=== PATIENT | male | born 1980 | race Two or more races ===

== ENCOUNTER 2018-09-19 01:20 | Emergency (ER) | payer BC ==
[~2018-09-19] VITALS: Ht 165.1 cm; Wt 90.7 kg
--- NOTE | 2018-09-19 01:26 | PHYS DOC ---
Past Medical History Past Medical History: No Pertinent History Past Surgical History: Other Past Surgical History Abdominal surgery following accident. Unable to obtain more details d/t language barrier. Smoking: Cigarettes Alcohol Use: None Drug Use: None Adult General Chief Complaint Chief Complaint: ABDOMINAL PAIN HPI HPI Patient is 38 yo male who presents with severe L sided flank and abdominal pain that radiates to his groin. Patient reports yesterday he noticed urinary urgency and decreased volume of urine output. Around 1800 yesterday he notes the pain became significantly worse and he began to have worsening pain with urination.. He originally thought the pain was d/t gas and took GasX, however that did not alleviate symptoms. He has never had a kidney stone or similar symptoms. He denies recent trauma to back or abdomen. He reports the pain is so significant he cannot sit still. He denies nausea, vomiting, diarrhea, or penile discharge. He reports his last bowel movement was early yesterday and he has passed gas since. Of note, patient explains that he has a midline scar on his abdomen from trauma several years ago. Patient denies medication allergies, etoh use, tobacco use, or drug use. Review of Systems Review of Systems Constitutional: Denies fever or chills [] Respiratory: Denies cough or shortness of breath [] Cardiovascular: Denies chest pain or palpitations GI: Denies abdominal pain, nausea, vomiting, or diarrhea [] : Admits dysuria, urinary retention, urinary urgency. Denies penile discharge or gross blood in urine. Musculoskeletal: Admits back pain that radiates to groin. Integument: Denies rash or skin lesions [] Neurologic: Denies headache, focal weakness or sensory changes [] [ Complete systems were reviewed and found to be within normal limits, except as documented in this note. Current Medications Current Medications Current Medications Medications (Trade) Dose Ordered Sig/Juventino Start Time Stop Time Status Last Admin Dose Admin Fentanyl Citrate (Fentanyl 2ml Vial) 50 mcg 1X ONCE 09/19/18 02:00 09/19/18 02:01 DC 09/19/18 01:56 50 MCG Ketorolac Tromethamine (Toradol 15mg Vial) 15 mg 1X ONCE 09/19/18 01:45 09/19/18 01:46 DC 09/19/18 01:49 15 MG Metoclopramide HCl (Reglan Vial) 10 mg 1X ONCE 09/19/18 01:45 09/19/18 01:46 DC 09/19/18 01:49 10 MG Sodium Chloride 1,000 ml @ 1,000 mls/hr 1X ONCE 09/19/18 01:45 09/19/18 02:44 DC 09/19/18 01:48 1,000 MLS/HR Tamsulosin HCl (Flomax) 0.4 mg 1X ONCE 09/19/18 03:00 09/19/18 03:01 DC 09/19/18 03:26 0.4 MG Allergies Allergies Allergies Coded Allergies Type Severity Reaction Last Updated Verified No Known Drug Allergies 09/19/18 No Physical Exam Physical Exam Constitutional: Well developed, well nourished, uncomfortable in bed and sitting up, non-toxic appearance. [] HENT: Normocephalic, atraumatic, Neck: Normal range of motion Cardiovascular:Heart rate regular rhythm, no murmur [] Lungs & Thorax: Bilateral breath sounds clear to auscultation [] Abdomen: Soft, mildly tender to palpation, particularly LLQ, midline scar present from sternum to below umbilicus. Skin: Warm, dry, no erythema, no rash. [] Back: L side mildly tender to palpation. No CVA tenderness Extremities: No tenderness, ROM intact, no edema. [] Neurologic: Alert and oriented X 3, normal motor function, normal sensory function, no focal deficits noted. [] Current Patient Data Vital Signs Vital Signs Date Time Temp Pulse Resp B/P (MAP) Pulse Ox O2 Delivery O2 Flow Rate FiO2 09/19/18 02:56 84 148/95 (112) 98 09/19/18 01:56 22 Room Air 09/19/18 01:25 98.0 98.0 Lab Values Laboratory Tests Test 09/19/18 01:30 09/19/18 01:35 Urine Collection Type Unknown Urine Color Yellow Urine Clarity Cloudy Urine pH 7.5 Urine Specific Occidental 1.025 Urine Protein >=300 mg/dL (NEG-TRACE) Urine Glucose (UA) 100 mg/dL (NEG) Urine Ketones (Stick) Trace mg/dL (NEG) Urine Blood Moderate (NEG) Urine Nitrite Negative (NEG) Urine Bilirubin Negative (NEG) Urine Urobilinogen Dipstick 1.0 mg/dL (0.2 mg/dL) Urine Leukocyte Esterase Negative (NEG) Urine RBC 20-40 /HPF (0-2) Urine WBC Occ /HPF (0-4) Urine Squamous Epithelial Cells Occ /LPF Urine Amorphous Sediment Present /HPF Urine Bacteria Few /HPF (0-FEW) Urine Mucus Mod /LPF White Blood Count 9.5 x10^3/uL (4.0-11.0) Red Blood Count 5.38 x10^6/uL (4.30-5.70) Hemoglobin 15.8 g/dL (13.0-17.5) Hematocrit 46.6 % (39.0-53.0) Mean Corpuscular Volume 87 fL (79-100) Mean Corpuscular Hemoglobin 29 pg (25-35) Mean Corpuscular Hemoglobin Concent 34 g/dL (31-37) Red Cell Distribution Width 12.7 % (11.5-14.5) Platelet Count 230 x10^3/uL (140-400) Neutrophils (%) (Auto) 82 % (31-73) H Lymphocytes (%) (Auto) 13 % (24-48) L Monocytes (%) (Auto) 4 % (0-9) Eosinophils (%) (Auto) 1 % (0-3) Basophils (%) (Auto) 0 % (0-3) Neutrophils # (Auto) 7.8 x10^3uL (1.8-7.7) H Lymphocytes # (Auto) 1.2 x10^3/uL (1.0-4.8) Monocytes # (Auto) 0.4 x10^3/uL (0.0-1.1) Eosinophils # (Auto) 0.1 x10^3/uL (0.0-0.7) Basophils # (Auto) 0.0 x10^3/uL (0.0-0.2) Sodium Level 135 mmol/L (136-145) L Potassium Level 3.7 mmol/L (3.5-5.1) Chloride Level 101 mmol/L (98-107) Carbon Dioxide Level 26 mmol/L (21-32) Anion Gap 8 (6-14) Blood Urea Nitrogen 17 mg/dL (8-26) Creatinine 1.6 mg/dL (0.7-1.3) H Estimated GFR (Cockcroft-Gault) 49.2 BUN/Creatinine Ratio 11 (6-20) Glucose Level 160 mg/dL (70-99) H Calcium Level 9.2 mg/dL (8.5-10.1) Magnesium Level 2.1 mg/dL (1.8-2.4) Total Bilirubin 0.5 mg/dL (0.2-1.0) Aspartate Amino Transferase (AST) 34 U/L (15-37) Alanine Aminotransferase (ALT) 46 U/L (16-63) Alkaline Phosphatase 54 U/L (46-116) Total Protein 8.0 g/dL (6.4-8.2) Albumin 4.1 g/dL (3.4-5.0) Albumin/Globulin Ratio 1.1 (1.0-1.7) Lipase 165 U/L (73-393) Laboratory Tests 09/19/18 01:35 Laboratory Tests 09/19/18 01:35 EKG EKG [] Radiology/Procedures Radiology/Procedures [PROCEDURE: CT ABDOMEN PELVIS WO CONTRAST CT abdomen and pelvis without contrast PQRS statement: CT scans at this facility use dose reduction including either automated exposure control, iterative reconstructions, and /or weight based radiation dosing via mA and kV modification when appropriate to reduce radiation dose to as low as reasonably achievable. HISTORY: Left flank pain, ureteral calculi. TECHNIQUE: Noncontrast CT imaging of the abdomen and pelvis was acquired. Abdomen findings: Right middle lobe oblong 7 mm solid soft tissue nodule. Small 2 mm right renal upper pole calculus. There is mild left renal hydronephrosis and renal edema and perinephric edema as well as ureteral dilation associated with a ureterovesical junction 2 mm calculus. Pancreas, adrenals, spleen, liver and gallbladder are unremarkable. Appendix is negative. No obstruction or inflammation GI tract. No abdominal fluid. Chronic shrapnel left anterior chest wall noted. Pelvis findings: 2 mm left ureterovesical calculus. Prostate, rectum and bones unremarkable. Old shrapnel right buttock. IMPRESSION: 1. Mild left renal hydronephrosis and renal edema associated with a 2 mm obstructing ureterovesical junction calculus. 2. Small nonobstructing right renal calculus. 3. Appendix is negative. 4. 7 mm right middle lobe solid pulmonary nodule. Per Fleischner guidelines attention on follow-up CT imaging in 6-12 months would be advised. Electronically signed by: Francisco J Scales MD (09/19/2018 2:30 AM) [facility] [id number]] Course & Med Decision Making Course & Med Decision Making Patient is 38 yo [place] male who presents with urinary urgency, burning, and L sided flank and abdominal pain that radiates to groin beginning at 1800 yesterday. He reports he has never had problems with kidneys or prior kidney stones. On physical exam he is hypertensive and uncomfortable in bed. There are no lesions on his back or left side of his abdomen. Patient is mildly tender to palpation in abdomen. Remainder of physical examination unremarkable. CT abdomen pelvis revealed 2mm stone at L side ureterovesicular junction. Additionally CT revealed nonspecific R sided 7mm lung nodule. Patient treated with fentanyl, ketorolac, flomax, and fluids. Labs revealed elevated Cr and blood in UA. Through the interpreter and translator phone we explained the lab results and that the imaging showed a L sided kidney stone. We explained the plan was to discharge the patient home with hydrocodone for pain, flomax to help relax the ureter, and zofran for nausea.. We instructed the patient to drink plenty of fluids to help pass the stone, and that he may be minimally uncomfortable until the stone passes. Also, we explained that the CT revealed an incidental finding of a R sided lung nodule. We discussed that it is important for the patient to establish care with a primary care provider to have a repeat blood test for creatinine and to have a repeat CT for the lung nodule in 6-[address] of CT report provided to patient to give to his PCP. Patient stable for discharge with outpatient follow-up with PCP/urologist. Urology referral given. Discussed findings and plan with patient and family, who acknowledge understanding and agreement. Dragon Disclaimer Dragon Disclaimer This electronic medical record was generated, in whole or in part, using a voice recognition dictation system. Departure Departure Impression: Primary Impression: Kidney stone Additional Impressions: Incidental pulmonary nodule, > 3mm and < 8mm Renal insufficiency Disposition: 01 HOME, SELF-CARE Condition: STABLE Referrals: YONNY TRACY MD Patient Instructions: Diet for Kidney Stones, Incidental Abnormal Radiological Finding, Kidney Stones, [id number], Pulmonary Nodule, [id number] Additional Instructions: Your Kidney function was found to be slightly impaired. Your creatnine was 1.6. Please follow with your family physician for further evaluation and recheck of your value. Scripts Tamsulosin Hcl (FLOMAX) 0.4 Mg Cap.er.24h 1 CAP PO DAILY, #10 CAP 0 Refills Prov: YANIV MARTINEZ DO 09/19/18 Ondansetron (ONDANSETRON ODT) 4 Mg Tab.rapdis 1 TAB PO PRN Q6-8HRS PRN for NAUSEA, #16 TAB Prov: YANIV MARTINEZ DO 09/19/18 Hydrocodone/Apap 5-325 (NORCO 5-325 TABLET) 1 Each Tablet 0.5-1 TAB PO PRN Q6HRS PRN for PAIN, #10 TAB 0 Refills Prov: YANIV MARTINEZ DO 09/19/18 Problem Qualifiers YANIV MARTINEZ DO Sep 19, 2018 01:26
[2018-09-19] MEDS ORDERED: KETOROLAC 15 MG/ML VIAL. IV ONE (01:45)
[2018-09-19] MEDS ORDERED: METOCLOPRAMIDE HCL 10 MG/2 ML VIAL. IV ONE (01:45)
[2018-09-19] MEDS ORDERED: IV NORMAL SALINE 1000ML BAG 1,000 ML IV ONE (01:45)
[2018-09-19 01:48] LABS: BASO % 0 % (0-3); EOS # 0.1 x10^3/uL (0.0-0.7); EOS % 1 % (0-3); HEMATOCRIT 46.6 % (39.0-53.0); HEMOGLOBIN 15.8 g/dL (13.0-17.5); LYMPH # 1.2 x10^3/uL (1.0-4.8); LYMPH % 13 % (24-48); MEAN CORPUSCULAR HEMOGLOBIN 29 pg (25-35); MEAN CORPUSCULAR HGB CONC 34 g/dL (31-37); MEAN CORPUSCULAR VOLUME 87 fL (79-100); MONO # 0.4 x10^3/uL (0.0-1.1); MONO % 4 % (0-9); NEUT # 7.8 x10^3uL (1.8-7.7); NEUT % 82 % (31-73); PLATELET COUNT 230 x10^3/uL (140-400); RED BLOOD COUNT 5.38 x10^6/uL (4.30-5.70); RED CELL DISTRIBUTION WIDTH 12.7 % (11.5-14.5); WHITE BLOOD COUNT 9.5 x10^3/uL (4.0-11.0)
[2018-09-19 01:51] LABS: BILIRUBIN,URINE NEGATIVE (NEG); CLARITY,URINE CLOUDY; COLOR,URINE YELLOW; NITRITE,URINE NEGATIVE (NEG); PH,URINE 7.5; PROTEIN,URINE >=300 mg/dL (NEG-TRACE)
[2018-09-19] MEDS ORDERED: fentaNYL PF VIAL 100 MCG/2 ML VIAL IV ONE (02:00)
[2018-09-19 02:02] LABS: CALCIUM 9.2 mg/dL (8.5-10.1); CREATININE 1.6 mg/dL (0.7-1.3); GFR 49.2; POTASSIUM 3.7 mmol/L (3.5-5.1)
[2018-09-19 02:07] LABS: AMORPHOUS SEDIMENT,UR PRESENT /HPF; BACTERIA,URINE FEW /HPF (0-FEW); RBC,URINE 20-40 /HPF (0-2); SQUAMOUS EPITHELIAL CELL,UR OCC /LPF; WBC,URINE OCC /HPF (0-4)
[2018-09-19 02:08] LABS: ALBUMIN 4.1 g/dL (3.4-5.0); ALBUMIN/GLOBULIN RATIO 1.1 (1.0-1.7); MAGNESIUM 2.1 mg/dL (1.8-2.4); TOTAL BILIRUBIN 0.5 mg/dL (0.2-1.0)
--- NOTE | 2018-09-19 02:36 | RAD ---
CT abdomen and pelvis without contrast PQRS statement: CT scans at this facility use dose reduction including either automated exposure control, iterative reconstructions, and /or weight based radiation dosing via mA and kV modification when appropriate to reduce radiation dose to as low as reasonably achievable. HISTORY: Left flank pain, ureteral calculi. TECHNIQUE: Noncontrast CT imaging of the abdomen and pelvis was acquired. Abdomen findings: Right middle lobe oblong 7 mm solid soft tissue nodule. Small 2 mm right renal upper pole calculus. There is mild left renal hydronephrosis and renal edema and perinephric edema as well as ureteral dilation associated with a ureterovesical junction 2 mm calculus. Pancreas, adrenals, spleen, liver and gallbladder are unremarkable. Appendix is negative. No obstruction or inflammation GI tract. No abdominal fluid. Chronic shrapnel left anterior chest wall noted. Pelvis findings: 2 mm left ureterovesical calculus. Prostate, rectum and bones unremarkable. Old shrapnel right buttock. IMPRESSION: 1. Mild left renal hydronephrosis and renal edema associated with a 2 mm obstructing ureterovesical junction calculus. 2. Small nonobstructing right renal calculus. 3. Appendix is negative. 4. 7 mm right middle lobe solid pulmonary nodule. Per Fleischner guidelines attention on follow-up CT imaging in 6-12 months would be advised. Electronically signed by: Francisco J Scales MD (09/19/2018 2:30 AM) [id number]
[2018-09-19] MEDS ORDERED: TAMS0.4C97 PO (02:49)
[2018-09-19] MEDS ORDERED: ONDA4TAB12 PO (02:49)
[2018-09-19] MEDS ORDERED: HYDR-3164 PO (02:49)
[2018-09-19 02:56] VITALS: BP 148/95
[2018-09-19] MEDS ORDERED: TAMSULOSIN 0.4 MG CAP.ER.24H. PO ONE (03:00)
== END 2018-09-19 03:32 | disposition home or self-care (01) ==
LOC: ER 01:20
DX: N13.2 Hydronephrosis with renal and ureteral calculous obstruction (principal); R91.1 Solitary pulmonary nodule; N28.9 Disorder of kidney and ureter, unspecified; F17.210 Nicotine dependence, cigarettes, uncomplicated
CPT/HCPCS: 36415; 74176; 80053; 81001; 83690; 83735; 85025; 96374; 96375; 99284; J1885; J2765; J3010; J7030